=== PATIENT | female | born 2000 | race Caucasian/White ===

== ENCOUNTER 2020-04-10 16:15 | Emergency (ER) | payer OTHER ==
[~2020-04-10] VITALS: Ht 154.9 cm; Wt 71.1 kg
[2020-04-10 16:15] VITALS: BP 106/61
[2020-04-10] MEDS ORDERED: PREN29TA4 PO (16:21)
[2020-04-10] MEDS ORDERED: ZOLO50TA PO (16:21)
[2020-04-10] MEDS ORDERED: KEFL250C11 PO (17:13)
== END 2020-04-10 17:21 | disposition home or self-care (01) ==
LOC: M ED 16:15
DX: N61.0 Mastitis without abscess (principal)